=== PATIENT | female | born 1960 | race Caucasian/White ===

== ENCOUNTER 2020-11-17 11:00 | Emergency (ER) | payer MEDICAID ==
[~2020-11-17] VITALS: Ht 165.1 cm; Wt 77.3 kg
[2020-11-17] MEDS ORDERED: TRAZ-252 PO (11:12)
[2020-11-17] MEDS ORDERED: LISI-661 PO (11:12)
[2020-11-17] MEDS ORDERED: CHOL400T56 PO (11:12)
[2020-11-17] MEDS ORDERED: CYAN100T45 PO (11:12)
[2020-11-17] MEDS ORDERED: AMLO-257 PO (11:12)
[2020-11-17] MEDS ORDERED: BACL10TA PO (11:12)
[2020-11-17] MEDS ORDERED: NORT10 PO (11:16)
[2020-11-17 13:15] VITALS: BP 116/71
== END 2020-11-17 13:42 | disposition left against medical advice (07) ==
LOC: EMS 11:08
DX: T83.038A Leakage of other urinary catheter, initial encounter (principal); F17.210 Nicotine dependence, cigarettes, uncomplicated; I10 Essential (primary) hypertension; Y84.6 Urinary catheterization as the cause of abnormal reaction of the patient, or of later complication, without mention of misadventure at the time of the procedure; Y73.8 Miscellaneous gastroenterology and urology devices associated with adverse incidents, not elsewhere classified